=== PATIENT | female | born 1950 | race Two or more races ===

== ENCOUNTER 2018-05-14 00:43 | Emergency (ER) | payer SELFPAY ==
[~2018-05-14] VITALS: Ht 165.1 cm; Wt 81.6 kg
[2018-05-14 00:51] VITALS: BP 152/89
== END 2018-05-14 02:35 | disposition left against medical advice (07) ==
LOC: ER 00:43
DX: M54.2 Cervicalgia (principal); Z53.21 Procedure and treatment not carried out due to patient leaving prior to being seen by health care provider